=== PATIENT | male | born 1990 | race Caucasian/White ===

== ENCOUNTER 2017-01-26 12:04 | Emergency (ER) | payer MEDICAID ==
[~2017-01-26] VITALS: Ht 172.7 cm; Wt 80.0 kg
[2017-01-26] MEDS ORDERED: KETOROLAC 60MG/2ML VIAL IM ONE (13:30)
[2017-01-26] MEDS ORDERED: HYDROCODONE/ACETAMINOPHEN 5/325MG TABLET PO ONE (14:30)
[2017-01-26 14:33] VITALS: BP 148/64
== END 2017-01-26 14:33 | disposition home or self-care (01) ==
LOC: ER 12:22
DX: M54.32 Sciatica, left side (principal); Z87.828 Personal history of other (healed) physical injury and trauma
CPT/HCPCS: 96372; 99283; J1885

== ENCOUNTER 2025-07-04 11:10 | Emergency (ER) | payer SELFPAY ==
[~2025-07-04] VITALS: Ht 180.3 cm; Wt 109.0 kg
[2025-07-04 11:25] VITALS: TEMP 36.9; O2SAT 98
[2025-07-04] MEDS: LIDOCAINE 5% PATCH TOP SCH (12:25)
[2025-07-04] MEDS: KETOROLAC 30MG/ML VIAL IM ONE (12:25)
[2025-07-04] MEDS ORDERED: METH4TAB95 MT (12:38)
[2025-07-04] MEDS ORDERED: LIDO-53 TP (12:38)
[2025-07-04 13:25] VITALS: BP 135/81; PULSE 70; RESP 12; O2SAT 98
== END 2025-07-04 13:28 | disposition home or self-care (01) ==
LOC: ER 11:10
DX: G89.29 Other chronic pain (principal); M54.50 Low back pain, unspecified; M25.562 Pain in left knee; I10 Essential (primary) hypertension
CPT/HCPCS: 99283; 73560; 96372; J1885